=== PATIENT | male | born 1950 | race Caucasian/White ===

== ENCOUNTER 2017-05-15 12:51 | Day surgery (SDC) | payer MEDICARE, OTHER, SELFPAY | END 2017-05-15 14:31 | disposition home or self-care (01) | PROVIDERS: Visit Provider Nurse Anesthetist, Certified Registered | DX: M51.16 Intervertebral disc disorders with radiculopathy, lumbar region (principal); M96.1 Postlaminectomy syndrome, not elsewhere classified | CPT/HCPCS: 62370 ==

== ENCOUNTER → 2017-05-25 12:17 | Outpatient (POV) | payer MEDICARE, OTHER, SELFPAY ==
[2017-05-25 12:33] VITALS: BP 148/83; PULSE 73; RESP 18; TEMP 36.6; O2SAT 98; BMI 28.1
--- NOTE | 2017-05-25 13:25 | [facility].PMPROC ---
- Procedure Date: 05/25/17 Time: 13:25 Anesthesiologist:: Fox Pavon MD Complications:: None Pre-procedure Diagnosis:: Degenerative disc disease of lumbar spine with lumbar recopy symptoms and postlaminectomy syndrome Post-procedure Diagnosis:: Same Indications for Procedure:: This patient is a pleasant 67-year-old white male who we are treating for low back pain with lumbar radiculopathy symptoms and postlaminectomy syndrome. He has an intrathecal ziconotide pain pump in place currently going at 3 mcg per day. He did well for a period of time after his last increase. His pain is worsened recently. He is requesting another increase. He did aggravate his pain this morning by overexerting himself. We will increase his intrathecal ziconotide infusion. He has no side effects to report. Procedure Details:: Informed consent was obtained the risks and benefits of the procedure was explained to the patient. Patient was taken to the procedure room. Intrathecal pump was interrogated. Intrathecal ziconotide/bupivacaine infusion was increased from 3 mcg/day to 3.5 mcg per day. The patient tolerated the procedure well with no complications. Plan and Disposition:: We will follow-up with him in 2 weeks. We will reevaluate his symptoms make further adjustments at that time
== END ==
PROVIDERS: PCP Nurse Practitioner Family; Visit Provider Anesthesiology
DX: M54.16 Radiculopathy, lumbar region (principal)
CPT/HCPCS: 95991; 99212

== ENCOUNTER → 2017-06-22 12:57 | Day surgery (SDC) | payer MEDICARE, OTHER, SELFPAY ==
[2017-06-22 13:12] VITALS: BP 136/73; PULSE 67; RESP 16; TEMP 36.9; O2SAT 99; BMI 29.0
--- NOTE | 2017-06-22 13:23 | [facility]H.PMPROC ---
- Procedure Date: 06/22/17 Time: 13:23 Anesthesiologist:: Fox Pavon MD Complications:: None Pre-procedure Diagnosis:: Degenerative disc disease of lumbar spine with lumbar radiculopathy symptoms and postlaminectomy syndrome Post-procedure Diagnosis:: Same Indications for Procedure:: This patient is a pleasant 67-year-old white male who we are treating for low back with lumbar radiculopathy symptoms and postlaminectomy syndrome. He is doing well with his intrathecal ziconotide pain pump. He does have some increased pain with increased activity. He does not want an increase today. He has no side effects. He does have an antalgic gait. Motor strength of the lower extremities is 5/5. There is no gross sensory deficit. We will refill his pump and increase his intrathecal ziconotide infusion today to 4.2 mcg per day. Procedure Details:: Informed consent was obtained and the risks and benefits of the procedure was explained to the patient. The patient was taken to the procedure room. The pump was interrogated. The area over the pump was prepped using ChloraPrep. The pump was accessed with a 22-gauge needle. Approximately 6 mL's of the intrathecal solution was withdrawn and discarded. The pump was then refilled with 20 mL's of intrathecal ziconotide 25 mcg/mL. The pump was interrogated and the infusion was increased to 4.2 mcg per day. The patient tolerated the procedure well with no complication. Plan and Disposition:: We will follow-up with him at his next pump refill. If he has any problems or questions he is coming back in the pain clinic.
[2017-06-22 13:27] VITALS: BP 148/78; BP 154/88; PULSE 69; PULSE 72; RESP 18; RESP 20
[2017-06-22 13:47] VITALS: BP 135/68; PULSE 68; TEMP 36.9; O2SAT 96
== END ==
PROVIDERS: PCP Nurse Practitioner Family; Visit Provider Anesthesiology
DX: M51.16 Intervertebral disc disorders with radiculopathy, lumbar region (principal); M96.1 Postlaminectomy syndrome, not elsewhere classified
CPT/HCPCS: 62370

== ENCOUNTER → 2017-07-27 12:32 | Outpatient (POV) | payer MEDICARE, OTHER, SELFPAY ==
[2017-07-27 13:10] VITALS: BP 139/77; PULSE 74; TEMP 36.9; O2SAT 96; BMI 28.1
--- NOTE | 2017-07-27 13:41 | HMH.PMPROC ---
- Procedure Date: 07/27/17 Time: 13:41 Anesthesiologist:: Fox Pavon MD Complications:: None Pre-procedure Diagnosis:: Degenerative disc disease of lumbar spine with lumbar radiculopathy symptoms and postlaminectomy syndrome with increasing side effects with current ziconotide infusion Post-procedure Diagnosis:: Same Indications for Procedure:: This patient is a pleasant 67-year-old white male who we have been treating for low back pain with lumbar radiculopathy symptoms and postlaminectomy syndrome. He currently has an intrathecal ziconotide infusion. He is currently going at 4.2 mcg per day. He continues to have significant side effects and is not getting any benefit from the pain pump. He has talked to his primary care physician and because of several hospitalizations for pneumonia along with significant side effects with his current ziconotide infusion they have discussed turning off his current ziconotide infusion and explanting the pump. The patient is adamant and wants his pump out. Procedure Details:: Informed consent was obtained and the risk and benefits of the procedure was explained to the patient. Patient was taken to the procedure room. Intrathecal pump was interrogated. Pump was turned to 0 flow and turned off. Patient tolerated the procedure well with no complications. Plan and Disposition:: We will plan on explant of this intrathecal pain pump with Dr. Daily. We will schedule him with Dr. Daily for consult for pump explant.
== END ==
PROVIDERS: PCP Nurse Practitioner Family; Visit Provider Anesthesiology
DX: M54.16 Radiculopathy, lumbar region (principal)
CPT/HCPCS: 95991

== ENCOUNTER → 2017-08-01 11:49 | Outpatient (POV) | payer MEDICARE, SELFPAY ==
--- NOTE | 2017-08-01 14:20 | [facility]H.PMCON ---
Assessment and Plan - Assessment and plan all Dx Assessment and Plan for all problems:: Impression-inadequate pain relief with intrathecal pain pump system as well as intolerant side effect of pump/medications Plan-we will schedule for explantation of his intrathecal pain pump system in the near future HPI - Data of Consult Patient: known to practice within the last 3 years Consult date: 08/01/17 Requesting Physician: Michael Daily MD Primary Care Provider: Aspen Orozco APRN Family Provider: Referral Provider, - Consult Narrative Reason for consult: Ineffective pain relief and unacceptable side effects related to pump/medic History of present illness: Mr. Gonzales is a 67 year old male status post placement of an intrathecal pain pump system several months ago. He has had treatment with different medication with unacceptable side effects per patient description. He desires removal of the system. The pump had been placed for degenerative disc disease in the lumbar spine at multiple levels including postlaminectomy syndrome. CC: Michael Daily MD [facility] History Medical History: Reports:: Myocardial Infarction Denies:: Cancer, Diabetes Mellitus Type 1, Diabetes Mellitus Type 2, MRSA, Seizures Other Medical History: Reports: Anemia, Arthritis Other Surgeries: Yes: Appendectomy, Cardiac Catheterization, Colonoscopy, Coronary Stent Amputation: No Fractures: No - *Social History Smoking Status: Never smoker Alcohol Intake: never Occupational Status: retired, disabled Housing: house Household Members: spouse *Family Hx:: No significant family history Review of Systems - Constitutional Comments: Review of systems negative except for other parts of H&P Meds Allergies Allergy/AdvReac Type Severity Reaction Status Date / Time No Known Allergies Allergy Unverified 05/08/17 14:17 Objective Comments: Pale white male in no distress - Routine Chest/Breast/Axilla Exam Comments: Lungs clear - *Routine Cardiovascular Exam Comments: The right and rhythm - *Routine Abdominal Exam Comments: Soft and nontender
== END ==
PROVIDERS: PCP Nurse Practitioner Family; Visit Provider Surgery
DX: M96.1 Postlaminectomy syndrome, not elsewhere classified (principal)
CPT/HCPCS: 99212